=== PATIENT | male | born 1990 | race Caucasian/White ===

== ENCOUNTER → 2019-03-20 | Outpatient (CLI) | payer OTHER ==
--- NOTE | 2019-03-20 10:54 | REP ---
CT RIGHT FOOT: CT right foot performed in the axial plane. Sagittal and coronal reconstruction images are performed. There is no evidence of acute fracture or dislocation. Osseous structures are intact and well aligned. I do not see a significant arthritic change. Nonspecific linear soft tissue calcification is seen along the posterior margin of the cuboid. This may be tendinous. Soft tissue structures are unremarkable. IMPRESSION: No acute fracture or dislocation. Electronically Signed by Ludin Weeks MD 03/21/2019 11:05 A
== END ==
LOC: M RAD 09:19
PROVIDERS: ATTEND Orthopaedic Surgery Sports Medicine
DX: M79.671 Pain in right foot (principal)